=== PATIENT | male | born 1965 | race Caucasian/White ===

== ENCOUNTER 2017-07-29 10:15 | Emergency (ER) | payer OTHER ==
[2017-07-29 10:36] VITALS: BP 134/86; PULSE 87; TEMP 97.8; BMI 35.9
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
[2017-07-29] MEDS ORDERED: ACETAMINOPHEN 500 MG TABLET (FP) PO ONE (14:12)
[2017-07-29] MEDS ORDERED: ACETAMINOPHEN 500 MG TABLET (FP) ONE (14:17)
== END 2017-07-29 14:29 | disposition home or self-care (01) ==
LOC: JERFT 10:15
DX: S16.1XXA Strain of muscle, fascia and tendon at neck level, initial encounter (principal); M25.511 Pain in right shoulder; E78.5 Hyperlipidemia, unspecified
CPT/HCPCS: 70450-TC; 72125-TC; 73030-TC-RT; 99281-25

== ENCOUNTER 2018-12-10 09:27 | Emergency (ER) | payer OTHER ==
[2018-12-10 09:38] VITALS: BP 120/70; PULSE 82; TEMP 98; BMI 35.5
--- NOTE | 2018-12-10 10:12 | PDOC ---
History of Present Illness - General Stated Complaint: KNEE PAIN Time Seen by Provider: 12/10/18 10:12 History Source: Patient Exam Limitations: No Limitations - History of Present Illness Initial Comments: 12/10/18 10:29 53 yo M w/ no sig PMHx comes in c/o atraumatic R sided knee pain. 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 HE says that the pain started suddenly yesterday without any precipitating events. He had something similar 3 yrs ago, took naprosyn, pain went away and he never followed up. Past History - Past Medical History Allergies/Adverse Reactions: Allergies Allergy/AdvReac Type Severity Reaction Status Date / Time No Known Allergies Allergy Verified 12/10/18 09:51 Home Medications: Ambulatory Orders Naproxen [Naprosyn] 500 mg PO BID 3 Days #10 tablet 12/10/18 COPD: No Hypercholesterolemia: Yes (HYPERLIPIDEMIA) - Suicide/Smoking/Psychosocial Hx Smoking History: Never smoked Have you smoked in the past 12 months: No Hx Alcohol Use: No Drug/Substance Use Hx: No Substance Use Type: Alcohol Review of Systems - Review of Systems Able to Perform ROS?: Yes Constitutional: No: Chills, Fever, Malaise, Night Sweats HEENTM: No: Eye Pain, Recent change in vision, Throat Pain Respiratory: No: Cough, Shortness of Breath Cardiac (ROS): No: Chest Pain, Palpitations, Chest Tightness ABD/GI: No: Diarrhea, Nausea, Vomiting, Abdominal cramping : No: Dysuria, Hematuria Musculoskeletal: No: Back Pain Integumentary: No: Rash Neurological: No: Headache, Numbness, Dizziness Psychiatric: No: Change in Appetite Endocrine: No: Unexplained Weight Loss *Physical Exam - Vital Signs Last Vital Signs Temp Pulse Resp BP Pulse Ox 98 F 82 18 120/70 98 12/10/18 09:35 12/10/18 09:35 12/10/18 09:35 12/10/18 09:35 12/10/18 09:35 - Physical Exam General Appearance: Yes: Nourished. No: Apparent Distress HEENT: positive: KATERYNA, Normal ENT Inspection, Normal Voice. negative: Pale Conjunctivae, Scleral Icterus (R), Scleral Icterus (L) Neck: positive: Supple. negative: Decreased range of motion, Tender midline Respiratory/Chest: negative: Respiratory Distress, Accessory Muscle Use Cardiovascular: positive: Regular Rate Musculoskeletal: positive: Normal Inspection. negative: Decreased Range of Motion Extremity: positive: Normal Capillary Refill, Normal Inspection, Normal Range of Motion, Other (RLE without skin changes, no swelling. R knee without swelling , mild tenderness on palpation of medial joint line, FROM, 5/5 strength, able to straight leg raise, negetive valgus/varus/Donita/cinthia tests. Good distal pulses. AMbulating with slight limp from pain). negative: Tender, Pedal Edema Integumentary: positive: Normal Color, Dry. negative: Jaundice, Rash Neurologic: positive: Fully Oriented, Alert, Normal Mood/Affect Medical Decision Making - Medical Decision Making 12/10/18 10:33 53 yo M w/ atraumatic R knee pain, tenderness at medial joint line, could be arthritis Vs soft tissue pathology (menisceal Vs ligamentous). WIll do xrays, give naprosyn and refer to orthopedics for follow up 12/10/18 10:56 Xrays normal Pt ambulating ou of ED in [facility] WIll discharge with follow up with Dr. Sultana Return for worsening/concerning symptoms Pt verbalizes understanding and agrees with plan *DC/Admit/Observation/Transfer Diagnosis at time of Disposition: Knee pain, right Qualifiers: Chronicity: acute Qualified Code(s): M25.561 - Pain in right knee - Discharge Dispostion Disposition: HOME Condition at time of disposition: Stable - Referrals Referrals: Vel Sultana DO [Staff Physician] - - Patient Instructions Additional Instructions: Please call Dr. Sultana for an appointment. Take Naprosyn as needed for pain. Return for worsening/concerning symptoms. - Post Discharge Activity
[2018-12-10] MEDS ORDERED: NAPROXEN 500 MG TABLET (FP) PO ONE (10:21)
[2018-12-10] MEDS ORDERED: NAPROXEN 500 MG TABLET (FP) ONE (10:59)
== END 2018-12-10 11:10 | disposition home or self-care (01) ==
LOC: JERFT 09:27
DX: M25.561 Pain in right knee (principal)
CPT/HCPCS: 73562-TC-RT-FY; 99281-25

== ENCOUNTER 2022-07-04 05:13 | Emergency (ER) | payer OTHER ==
[2022-07-04 05:25] VITALS: BP 124/88; PULSE 77; RESP 22; BMI 34.4
[2022-07-04 05:27] VITALS: TEMP 97.8
[2022-07-04] MEDS ORDERED: LACTATED RINGERS SOLUTION 1000 ML INFUS.BAG IV ONE (05:47)
[2022-07-04] MEDS ORDERED: MECLIZINE HCL 25 MG TABLET (FP) PO ONE (05:48)
[2022-07-04] MEDS ORDERED: ONDANSETRON 4 MG/2 ML VIAL IVPUSH ONE (05:48)
[2022-07-04] MEDS ORDERED: ONDANSETRON 4 MG/2 ML VIAL ONE (06:02)
[2022-07-04] MEDS ORDERED: MECLIZINE HCL 25 MG TABLET (FP) ONE (06:02)
[2022-07-04 07:02] LABS: ALBUMIN 4.1 g/dl (3.4-5.0); BLOOD UREA NITROGEN 23.6 mg/dL (7-18)
[2022-07-04 07:06] LABS: CREATININE 0.9 mg/dL (0.55-1.3)
[2022-07-04 07:07] LABS: BILIRUBIN,TOTAL 0.5 mg/dL (0.2-1); TOT PROT 7.3 g/dl (6.4-8.2)
[2022-07-04 07:31] LABS: EOS % 2.4 % (0-4.5); HEMATOCRIT 45.3 % (35.4-49); HEMOGLOBIN 15.5 GM/dL (11.7-16.9); LYMPH % 33.9 % (8-40); MCHC 34.2 g/dl (32.0-35.9); MEAN CELL VOLUME 90.5 fl (80-96); MEAN PLT VOLUME 8.2 fl (7.5-11.1); MONO % 7.7 % (3.8-10.2); PLATELET COUNT 274 10^3/uL (134-434); RBC 5.01 M/mm3 (4.00-5.60); RDW 13.8 % (11.9-15.9)
[2022-07-04] MEDS ORDERED: LORazepam 2 MG/ML SDV VIAL IVPUSH ONE (07:42)
== END 2022-07-04 11:35 | disposition home or self-care (01) ==
LOC: JER 05:13
PROC: 3E033NZ Introduction of Analgesics, Hypnotics, Sedatives into Peripheral Vein, Percutaneous Approach (ICD-10-PCS; principal; 2022-07-04)
PROC: 3E033GC Introduction of Other Therapeutic Substance into Peripheral Vein, Percutaneous Approach (ICD-10-PCS; 2022-07-04)
DX: R42 Dizziness and giddiness (principal)
CPT/HCPCS: 0241U-QW; 36415; 70450-TC; 71045-TC-FY; 80053; 84484; 85025; 93005; 93010; 99285-25

== ENCOUNTER 2024-02-05 07:33 | Emergency (ER) | payer OTHER ==
[2024-02-05 07:39] VITALS: RESP 18; BMI 33.6
[2024-02-05] MEDS ORDERED: ONDANSETRON 4 MG/2 ML VIAL ONE (08:02)
[2024-02-05] MEDS ORDERED: ACETAMINOPHEN INJECTION 100 ML IVPB ONE (08:02)
[2024-02-05] MEDS ORDERED: MAG HYDROX/AL HYDROX/SIMETH 30 ML UNIT-DOSE CUP ONE (08:02)
[2024-02-05] MEDS ORDERED: FAMOTIDINE 20 MG/50 ML IVPB 20 MG/50 ML MG IVPB ONE (08:02)
[2024-02-05] MEDS: ONDANSETRON 4 MG/2 ML VIAL IVPUSH ONE (08:34)
[2024-02-05] MEDS: SODIUM CHLORIDE 0.9% 500 ML INFUS.BAG IV ONE (08:34)
[2024-02-05] MEDS: MAG HYDROX/AL HYDROX/SIMETH 30 ML UNIT-DOSE CUP PO ONE (08:34)
[2024-02-05] MEDS: ACETAMINOPHEN 1000 MG/100 ML BAG IVPB ONE (08:34)
[2024-02-05 08:41] LABS: BASO % 0.5 % (0-2.0); EOS % 0.4 % (0-4.5); HEMATOCRIT 43.8 % (35.4-49); HEMOGLOBIN 14.6 GM/dL (11.7-16.9); LYMPH % 8.8 % (8-40); MCHC 33.3 g/dl (32.0-35.9); MEAN CELL VOLUME 90.1 fl (80-96); MEAN PLT VOLUME 8.1 fl (7.5-11.1); MONO % 6.2 % (3.8-10.2); NEUT % 84.1 % (42.8-82.8); PLATELET COUNT 296 10^3/uL (134-434); RBC 4.87 M/mm3 (4.00-5.60); RDW 14.5 % (11.9-15.9); WHITE BLOOD COUNT 9.5 K/mm3 (4.0-10.0)
[2024-02-05 08:50] LABS: INR 1.12 (0.83-1.09); PROTHROMBIN TIME (PATIENT) 12.8 SEC (9.7-13.0)
[2024-02-05 08:53] LABS: ACTIVATED PTT 32.8 SECONDS (25.2-36.5)
[2024-02-05 08:58] LABS: POTASSIUM 3.9 mmol/L (3.5-5.1)
[2024-02-05] MEDS: FAMOTIDINE 20 MG/50 ML IVPB 20 MG/50 ML MG IVPB ONE (09:00)
[2024-02-05 09:01] LABS: ALBUMIN 4.1 g/dl (3.4-5.0); BLOOD UREA NITROGEN 25.2 mg/dL (7-18); CALCIUM 8.9 mg/dL (8.5-10.1); MAGNESIUM 2.4 mg/dL (1.8-2.4)
[2024-02-05 09:06] LABS: BILIRUBIN,TOTAL 0.6 mg/dL (0.2-1); TOT PROT 7.7 g/dl (6.4-8.2)
[2024-02-05 13:28] VITALS: BP 104/65; PULSE 80; TEMP 98.5
== END 2024-02-05 13:29 | disposition home or self-care (01) ==
LOC: JER 07:33
PROC: 3E033GC Introduction of Other Therapeutic Substance into Peripheral Vein, Percutaneous Approach (ICD-10-PCS; principal; 2024-02-05)
PROC: 3E033GC Introduction of Other Therapeutic Substance into Peripheral Vein, Percutaneous Approach (ICD-10-PCS; 2024-02-05)
PROC: 3E033NZ Introduction of Analgesics, Hypnotics, Sedatives into Peripheral Vein, Percutaneous Approach (ICD-10-PCS; 2024-02-05)
DX: A08.4 Viral intestinal infection, unspecified (principal); R11.2 Nausea with vomiting, unspecified; R19.7 Diarrhea, unspecified; Z20.822 Contact with and (suspected) exposure to COVID-19
CPT/HCPCS: 0241U-QW; 36415; 70450-TC; 71045-TC-FY; 80053; 83735; 84484; 85025; 85610; 85730; 93005; 93010; 99285-25; J0131

== ENCOUNTER 2024-02-10 14:10 | Emergency (ER) | payer OTHER ==
[2024-02-10 14:17] VITALS: BP 107/72; PULSE 101; RESP 18; TEMP 98; BMI 33.6
== END 2024-02-10 14:35 | disposition home or self-care (01) ==
LOC: JERFT 14:10
DX: Z48.02 Encounter for removal of sutures (principal)
CPT/HCPCS: 99281-25